=== PATIENT | female | born 1970 | race Two or more races ===

== ENCOUNTER 2018-05-17 11:00 | Emergency (ER) | payer OTHER ==
[~2018-05-17] VITALS: Ht 160 cm; Wt 68.0 kg
[2018-05-17] MEDS ORDERED: MEDROLPACK PO (11:13)
== END 2018-05-17 18:03 | disposition home or self-care (01) ==
LOC: ER 11:00
DX: K21.9 Gastro-esophageal reflux disease without esophagitis (principal); I10 Essential (primary) hypertension

== ENCOUNTER 2020-10-07 18:00 | Emergency (ER) | payer OTHER ==
[~2020-10-07] VITALS: Ht 160 cm; Wt 65.3 kg
[~2020-10-07 18:00] MED LIST: MEDROLPACK PO
== END 2020-10-07 18:45 | disposition home or self-care (01) ==
LOC: ER 18:00
DX: S01.82XA Laceration with foreign body of other part of head, initial encounter (principal); W26.8XXA Contact with other sharp object(s), not elsewhere classified, initial encounter; Y93.89 Activity, other specified; Y92.018 Other place in single-family (private) house as the place of occurrence of the external cause; Y99.8 Other external cause status

== ENCOUNTER 2020-10-16 16:09 | Emergency (ER) | payer OTHER ==
[~2020-10-16] VITALS: Ht 160 cm; Wt 63.5 kg
== END 2020-10-16 17:20 | disposition home or self-care (01) ==
LOC: ER 16:09
DX: Z48.02 Encounter for removal of sutures (principal)

== ENCOUNTER → 2021-10-09 | Emergency (ER) | payer OTHER ==
[~2021-10-09] VITALS: Ht 160 cm; Wt 67.6 kg
[~2021-10-09] MED LIST changes: +ACID REDUCER20 M1; +PEPCID AC20 MG PO
== END | disposition home or self-care (01) ==
LOC: ER 09:54
DX: R10.84 Generalized abdominal pain (principal); B96.81 Helicobacter pylori [H. pylori] as the cause of diseases classified elsewhere; Z20.822 Contact with and (suspected) exposure to COVID-19

== ENCOUNTER 2022-05-25 22:29 | Emergency (ER) | payer OTHER ==
[~2022-05-25] VITALS: Ht 160 cm; Wt 68.0 kg
[2022-05-25] MEDS ORDERED: PANADOL (22:44)
[2022-05-26] MEDS ORDERED: PEPCID40 MG PO (03:00)
[2022-05-26] MEDS ORDERED: PROTONIX40 MG PO (03:00)
[2022-05-26] MEDS ORDERED: ZOFRAN8 MG PO (03:00)
[2022-05-26] MEDS ORDERED: INTESTINEX680 M1 PO (03:00)
== END 2022-05-26 03:29 ==
LOC: ER 22:29
DX: K29.70 Gastritis, unspecified, without bleeding (principal)

== ENCOUNTER 2023-03-28 09:11 | Emergency (ER) | payer OTHER ==
[~2023-03-28] VITALS: Ht 160 cm; Wt 68.0 kg
[~2023-03-28 09:11] MED LIST changes: +INTESTINEX680 M1 PO; +PANADOL; +PEPCID40 MG PO; +PROTONIX40 MG PO; +ZOFRAN8 MG PO
== END 2023-03-28 11:40 | disposition home or self-care (01) ==
LOC: ER 09:11
DX: S00.211A Abrasion of right eyelid and periocular area, initial encounter (principal)

== ENCOUNTER 2025-06-12 16:05 | Emergency (ER) | payer OTHER ==
[~2025-06-12] VITALS: Ht 160 cm; Wt 73.0 kg
[2025-06-12] MEDS ORDERED: MECLIZINE HCL25 MG PO (16:28)
[2025-06-12] MEDS ORDERED: ONDANSETRON 4 MG TAB.RAPDIS PO ONE (17:00)
== END 2025-06-12 17:06 | disposition home or self-care (01) ==
LOC: ER 16:05
DX: H93.12 Tinnitus, left ear (principal)